=== PATIENT | female | born 1980 ===

== ENCOUNTER 2018-03-27 09:55 | Outpatient (CLI) | payer OTHER ==
[~2018-03-27] VITALS: Ht 152.4 cm; Wt 65.8 kg
== END 2018-03-27 10:10 | disposition home or self-care (01) ==
LOC: OFIC 805 09:55
DX: Q31.3 Laryngocele (principal)

== ENCOUNTER 2019-09-02 12:38 | Outpatient (CLI) | payer OTHER ==
[2019-09-02] MEDS ORDERED: ZYRTEC10 M3 PO (13:03)
[2019-09-02] MEDS ORDERED: FLONASE16 GM NASAL (13:03)
[2019-09-02] MEDS ORDERED: NEILMED SINUS1 EAC1 NASAL (13:04)
== END 2019-09-02 13:15 | disposition home or self-care (01) ==
LOC: OFIC 805 12:38
PROVIDERS: ATTEND Otolaryngology
DX: J32.8 Other chronic sinusitis (principal); R09.81 Nasal congestion; G47.33 Obstructive sleep apnea (adult) (pediatric); D10.1 Benign neoplasm of tongue

== ENCOUNTER 2019-09-18 16:26 | Outpatient (CLI) | payer OTHER ==
[~2019-09-18 16:26] MED LIST: FLONASE16 GM NASAL; NEILMED SINUS1 EAC1 NASAL; ZYRTEC10 M3 PO
== END 2019-09-18 16:40 | disposition home or self-care (01) ==
LOC: OFIC 805 16:26
PROVIDERS: ATTEND Otolaryngology
DX: G47.33 Obstructive sleep apnea (adult) (pediatric) (principal); R09.81 Nasal congestion; J32.8 Other chronic sinusitis; K21.9 Gastro-esophageal reflux disease without esophagitis; R22.1 Localized swelling, mass and lump, neck

== ENCOUNTER 2021-10-20 23:15 | Emergency (ER) | payer OTHER ==
[~2021-10-20] VITALS: Ht 152.4 cm; Wt 66.2 kg
[2021-10-20] MEDS ORDERED: SYNTHROID75 MCG PO (23:32)
[2021-10-20] MEDS ORDERED: VITAMIN D325 GM MC (23:33)
[2021-10-21] MEDS ORDERED: CIPRO500 MG PO (01:11)
[2021-10-21] MEDS ORDERED: DOLOGESIC 500-1 EACH PO (01:11)
== END 2021-10-21 01:18 ==
LOC: ER 23:15
DX: S90.211A Contusion of right great toe with damage to nail, initial encounter (principal); X58.XXXA Exposure to other specified factors, initial encounter; Y93.41 Activity, dancing; Y92.9 Unspecified place or not applicable